=== PATIENT | male | born 1975 | race Hispanic/Latino ===

== ENCOUNTER 2018-01-11 18:08 | Emergency (ER) | payer SELFPAY ==
[~2018-01-11 18:08] MED LIST: AMOX-429 PO; METF-444 PO
[2018-01-11 19:47] LABS: BASOPHILS % (AUTO) 2.3 % (0.0-5.0); EOSINOPHILS % (AUTO) 0.7 % (0.0-8.0); HEMATOCRIT 43.6 % (42-54); LYMPHOCYTES % (AUTO) 17.1 % (21.0-51.0); MEAN CORPUSCULAR HEMOGLOBIN 29.2 pg (27.0-33.0); MEAN CORPUSCULAR VOLUME 85.8 fL (79-99); MONOCYTES % (AUTO) 9.5 % (3.0-13.0); NEUTROPHILS % (AUTO) 70.4 % (40.0-77.0); PLATELET COUNT (AUTO) 346 K/uL (130-400); RED BLOOD CELL COUNT(AUTO) 5.08 MIL/uL (4.50-6.20); RED CELL DISTRIBUTION WIDTH 13.5 % (11.0-15.5); WHITE BLOOD COUNT (AUTO) 7.4 K/uL (4.8-10.8)
[2018-01-11 19:57] LABS: CREATININE 1.1 mg/dL (0.5-1.5); POTASSIUM 3.9 mmol/L (3.5-5.1)
[2018-01-11 19:59] LABS: AMPHET/METH SCREEN,URINE NEGATIVE (NEGATIVE); BARBITURATE SCREEN, URINE NEGATIVE (NEGATIVE); BENZODIAZEPINES SCREEN,URINE NEGATIVE (NEGATIVE); CANNABINOID SCREEN,URINE NEGATIVE (NEGATIVE); COCAINE SCREEN,URINE POSITIVE (NEGATIVE); OPIATE SCREEN,URINE NEGATIVE (NEGATIVE); PHENCYCLIDINE SCREEN,URINE NEGATIVE (NEGATIVE)
[2018-01-11] MEDS ORDERED: INSULIN HUMULIN R 100 UNIT/ML 3ML ONE (21:02)
[2018-01-11] MEDS ORDERED: SODIUM CHLORIDE 0.9% 1000ML 1,000 ML IV ONE (21:02)
[2018-01-11] MEDS ORDERED: ACETAMINOPHEN 325 MG TAB ONE (21:33)
== END 2018-01-11 22:35 | disposition home or self-care (01) ==
LOC: EDH 18:08
DX: E11.65 Type 2 diabetes mellitus with hyperglycemia (principal); F14.10 Cocaine abuse, uncomplicated; Z48.01 Encounter for change or removal of surgical wound dressing; Z72.0 Tobacco use
CPT/HCPCS: 36415; 73590; 80048; 80305; 82948; 83605; 85025; 87040 ×2; 96361; 96374; 99285; J1815; J7030

== ENCOUNTER 2018-02-23 09:04 | Emergency (ER) | payer SELFPAY ==
[2018-02-23] MEDS ORDERED: ONDANSETRON HCL 4 MG/2 ML VIAL ONE (09:49)
[2018-02-23] MEDS ORDERED: MORPHINE SULFATE 4 MG/1ML SYG ONE (09:49)
[2018-02-23] MEDS ORDERED: LIDOCAINE 1%-EPI 1:100,000 20 ML VIAL IJ ONE (09:49)
[2018-02-23 09:52] LABS: BASOPHILS % (AUTO) 0.7 % (0.0-5.0); EOSINOPHILS % (AUTO) 0.5 % (0.0-8.0); HEMATOCRIT 44.7 % (42-54); LYMPHOCYTES % (AUTO) 13.5 % (21.0-51.0); MEAN CORPUSCULAR HEMOGLOBIN 28.9 pg (27.0-33.0); MEAN CORPUSCULAR HGB CONC 33.6 g/dL (32.0-36.0); MEAN CORPUSCULAR VOLUME 86.1 fL (79-99); MONOCYTES % (AUTO) 4.7 % (3.0-13.0); NEUTROPHILS % (AUTO) 80.6 % (40.0-77.0); PLATELET COUNT (AUTO) 341 K/uL (130-400); RED BLOOD CELL COUNT(AUTO) 5.19 MIL/uL (4.50-6.20); RED CELL DISTRIBUTION WIDTH 13.5 % (11.0-15.5); WHITE BLOOD COUNT (AUTO) 12.4 K/uL (4.8-10.8)
[2018-02-23 10:11] LABS: ALBUMIN 3.1 g/dL (3.5-5.0); BILIRUBIN,TOTAL 0.4 mg/dL (0.2-1.0); TOTAL PROTEIN, SERUM 7.6 g/dL (6.0-8.3)
== END 2018-02-23 11:03 | disposition home or self-care (01) ==
LOC: EDH 09:04
DX: L02.31 Cutaneous abscess of buttock (principal); R03.0 Elevated blood-pressure reading, without diagnosis of hypertension; E11.9 Type 2 diabetes mellitus without complications; Z72.0 Tobacco use
CPT/HCPCS: 10061; 36415; 80053; 85025; 96374; 96375; 99284; J2270; J2405; J3490

== ENCOUNTER 2019-10-05 14:09 | Emergency (ER) | payer SELFPAY ==
[2019-10-05] MEDS ORDERED: SULFAMETHOX-TMP DS 800/160 TAB ONE (14:34)
[2019-10-05] MEDS ORDERED: IBUPROFEN 600 MG TABLET ONE (14:35)
== END 2019-10-05 15:17 | disposition home or self-care (01) ==
LOC: EDH 14:09
DX: L02.414 Cutaneous abscess of left upper limb (principal); E11.9 Type 2 diabetes mellitus without complications; I10 Essential (primary) hypertension; E78.00 Pure hypercholesterolemia, unspecified; Z87.891 Personal history of nicotine dependence

== ENCOUNTER 2020-08-13 10:43 | Emergency (ER) | payer OTHER ==
[2020-08-13 11:16] LABS: BASOPHILS % (AUTO) 0.7 % (0.0-5.0); EOSINOPHILS % (AUTO) 0.9 % (0.0-8.0); HEMATOCRIT 47.6 % (42-54); LYMPHOCYTES % (AUTO) 20.7 % (21.0-51.0); MEAN CORPUSCULAR HEMOGLOBIN 27.5 pg (27.0-33.0); MEAN CORPUSCULAR HGB CONC 32.6 g/dL (32.0-36.0); MEAN CORPUSCULAR VOLUME 84.4 fL (79-99); MONOCYTES % (AUTO) 6.9 % (3.0-13.0); NEUTROPHILS % (AUTO) 70.2 % (40.0-77.0); PLATELET COUNT (AUTO) 345 K/uL (130-400); RED BLOOD CELL COUNT(AUTO) 5.64 MIL/uL (4.50-6.20); RED CELL DISTRIBUTION WIDTH 12.9 % (11.0-15.5); WHITE BLOOD COUNT (AUTO) 10.1 K/uL (4.8-10.8)
[2020-08-13 11:31] LABS: ALBUMIN 3.6 g/dL (3.5-5.0); BILIRUBIN,TOTAL 0.5 mg/dL (0.2-1.0); CREATININE 1.1 mg/dL (0.5-1.5); POTASSIUM 4.9 mmol/L (3.5-5.1); TOTAL PROTEIN, SERUM 8.7 g/dL (6.0-8.3)
[2020-08-13] MEDS ORDERED: CLINDAMYCIN 600 MG/D5% WATER 50 ML IV ONE (12:42)
[2020-08-13] MEDS ORDERED: SODIUM CHLORIDE 0.9% 100 ML IV ONE (12:42)
[2020-08-13] MEDS ORDERED: INSULIN HUMULIN R 100 UNIT/ML 3ML ONE (12:43)
[2020-08-13 12:49] LABS: APPEARANCE,URINE Clear (CLEAR); BILIRUBIN,URINE Negative (NEGATIVE); COLOR,URINE Yellow (YELLOW); GLUCOSE, URINE (UA) >=1000 mg/dL (NEGATIVE); KETONES,URINE Negative (NEGATIVE); LEUKOCYTE ESTERASE ,URINE Negative (NEGATIVE); NITRATE,URINE Negative (NEGATIVE); OCCULT BLOOD,URINE Negative (NEGATIVE); PROTEIN,URINE Negative (NEGATIVE); UROBILINOGEN,URINE 0.2 mg/dL (0.2-1.0)
[2020-08-13 12:58] LABS: BACTERIA,URINE None Seen /HPF (None Seen); RBC,URINE 0-1 /HPF (0-1); SQUAMOUS EPITHELIAL CELL,UR Rare /HPF (0-2); WBC,URINE 0-1 /HPF (0-1)
== END 2020-08-13 14:29 | disposition home or self-care (01) ==
LOC: EDH 10:43
DX: L02.415 Cutaneous abscess of right lower limb (principal); E11.65 Type 2 diabetes mellitus with hyperglycemia; I10 Essential (primary) hypertension; E78.00 Pure hypercholesterolemia, unspecified; Z87.891 Personal history of nicotine dependence
CPT/HCPCS: 36415; 80053; 81001; 84484; 85025; 96365; 96366; 96372; 99284; J1815; J3490

== ENCOUNTER 2021-02-03 19:48 | Emergency (ER) | payer OTHER ==
[~2021-02-03] VITALS: Ht 167.6 cm; Wt 103.4 kg
[2021-02-03] MEDS ORDERED: LIDOCAINE HCL 2% VISCOUS 15 ML UDCUP PO ONE (22:30)
[2021-02-03] MEDS ORDERED: KETOROLAC 30MG VIAL (30MG/ML) IM ONE (22:30)
[2021-02-03] MEDS ORDERED: MAG/ALUM/SIMETH 30 ML UDCUP PO ONE (22:30)
[2021-02-03 23:26] LABS: BASOPHILS % (AUTO) 0.9 % (0.0-5.0); EOSINOPHILS % (AUTO) 0.8 % (0.0-8.0); HEMATOCRIT 42.9 % (42-54); LYMPHOCYTES % (AUTO) 22.9 % (21.0-51.0); MEAN CORPUSCULAR HEMOGLOBIN 29.3 pg (27.0-33.0); MEAN CORPUSCULAR HGB CONC 33.3 g/dL (32.0-36.0); MEAN CORPUSCULAR VOLUME 87.9 fL (79-99); MONOCYTES % (AUTO) 9.2 % (3.0-13.0); NEUTROPHILS % (AUTO) 65.8 % (40.0-77.0); PLATELET COUNT (AUTO) 376 K/uL (130-400); RED BLOOD CELL COUNT(AUTO) 4.88 MIL/uL (4.50-6.20); RED CELL DISTRIBUTION WIDTH 12.6 % (11.0-15.5); WHITE BLOOD COUNT (AUTO) 12.4 K/uL (4.8-10.8)
[2021-02-03 23:39] LABS: CREATININE 1.5 mg/dL (0.5-1.5); POTASSIUM 4.1 mmol/L (3.5-5.1)
[2021-02-03 23:44] LABS: BILIRUBIN,TOTAL 0.3 mg/dL (0.2-1.0); TOTAL PROTEIN, SERUM 8.9 g/dL (6.0-8.3)
[2021-02-04] MEDS ORDERED: DICY20TA2 PO (00:24)
[2021-02-04] MEDS ORDERED: PANT40TA54 PO (00:24)
[2021-02-04] MEDS ORDERED: CHLO25TA23 PO (00:24)
[2021-02-04] MEDS ORDERED: LIDOCAINE HCL 2% VISCOUS 15 ML UDCUP ONE (00:26)
[2021-02-04] MEDS ORDERED: CHLORPROMAZINE HCL 25 MG/ML 1ML AMP ONE (00:27)
[2021-02-04] MEDS ORDERED: KETOROLAC 30MG VIAL (30MG/ML) ONE (00:27)
[2021-02-04] MEDS ORDERED: MAG/ALUM/SIMETH 30 ML UDCUP ONE (00:27)
[2021-02-04] MEDS ORDERED: CHLORPROMAZINE HCL 25 MG/ML 1ML AMP IM SCH (00:30)
[2021-02-04 00:46] VITALS: BP 160/87
== END 2021-02-04 00:57 | disposition home or self-care (01) ==
LOC: EDH 19:48
DX: K80.70 Calculus of gallbladder and bile duct without cholecystitis without obstruction (principal); K21.9 Gastro-esophageal reflux disease without esophagitis; I10 Essential (primary) hypertension; E78.00 Pure hypercholesterolemia, unspecified; E11.9 Type 2 diabetes mellitus without complications; Z79.1 Long term (current) use of non-steroidal anti-inflammatories (NSAID); Z79.84 Long term (current) use of oral hypoglycemic drugs; Z87.19 Personal history of other diseases of the digestive system
CPT/HCPCS: 36415; 71045; 76705; 80053; 82150; 83690; 85025; 93005; 96372 ×2; 99285; J1885; J3230

== ENCOUNTER 2021-07-31 07:56 | Emergency (ER) | payer SELFPAY ==
[~2021-07-31] VITALS: Ht 167.6 cm; Wt 103.0 kg
[~2021-07-31 07:56] MED LIST changes: +CHLO25TA23 PO; +DICY20TA2 PO; +PANT40TA54 PO
[2021-07-31 08:21] LABS: BASOPHILS % (AUTO) 0.7 % (0.0-5.0); EOSINOPHILS % (AUTO) 0.5 % (0.0-8.0); HEMATOCRIT 46.9 % (42-54); LYMPHOCYTES % (AUTO) 19.5 % (21.0-51.0); MEAN CORPUSCULAR HEMOGLOBIN 27.5 pg (27.0-33.0); MEAN CORPUSCULAR HGB CONC 33.3 g/dL (32.0-36.0); MEAN CORPUSCULAR VOLUME 82.7 fL (79-99); MONOCYTES % (AUTO) 6.7 % (3.0-13.0); NEUTROPHILS % (AUTO) 72.2 % (40.0-77.0); PLATELET COUNT (AUTO) 352 K/uL (130-400); RED BLOOD CELL COUNT(AUTO) 5.67 MIL/uL (4.50-6.20); RED CELL DISTRIBUTION WIDTH 14.2 % (11.0-15.5); WHITE BLOOD COUNT (AUTO) 12.2 K/uL (4.8-10.8)
[2021-07-31 08:22] LABS: APPEARANCE,URINE Clear (CLEAR); BILIRUBIN,URINE Negative (NEGATIVE); COLOR,URINE Yellow (YELLOW); GLUCOSE, URINE (UA) 500 mg/dL (NEGATIVE); KETONES,URINE >=80 mg/dL (NEGATIVE); LEUKOCYTE ESTERASE ,URINE Negative (NEGATIVE); NITRATE,URINE Negative (NEGATIVE); OCCULT BLOOD,URINE Negative (NEGATIVE); PH,URINE 5.5 (5.0-8.0); PROTEIN,URINE POS 2+ mg/dL (NEGATIVE)
[2021-07-31] MEDS ORDERED: KETOROLAC 30MG VIAL (30MG/ML) IVP ONE (08:30)
[2021-07-31 08:35] LABS: ALBUMIN 4.2 g/dL (3.5-5.0); BILIRUBIN,TOTAL 0.5 mg/dL (0.2-1.0); TOTAL PROTEIN, SERUM 8.8 g/dL (6.0-8.3)
[2021-07-31 08:42] LABS: BACTERIA,URINE Rare /HPF (None Seen); MUCUS,URINE Few LPF (None Seen); RBC,URINE None Seen /HPF (0-1); SPERM,URINE Few /HPF (None Seen); SQUAMOUS EPITHELIAL CELL,UR 0-2 /HPF (0-2); WBC,URINE 0-1 /HPF (0-1)
[2021-07-31] MEDS ORDERED: DICL50TA9 PO (09:32)
[2021-07-31 09:55] VITALS: BP 111/49
== END 2021-07-31 09:57 | disposition home or self-care (01) ==
LOC: EDH 07:56
DX: K80.70 Calculus of gallbladder and bile duct without cholecystitis without obstruction (principal); E11.9 Type 2 diabetes mellitus without complications; E78.00 Pure hypercholesterolemia, unspecified; I10 Essential (primary) hypertension; K21.9 Gastro-esophageal reflux disease without esophagitis; Z79.1 Long term (current) use of non-steroidal anti-inflammatories (NSAID); Z79.84 Long term (current) use of oral hypoglycemic drugs
CPT/HCPCS: 36415; 74176; 80053; 81001; 83690; 85025; 96374; 99284; J1885

== ENCOUNTER 2022-02-24 16:56 | Inpatient (IN) | payer OTHER ==
[~2022-02-24] VITALS: Ht 170.2 cm; Wt 100.0 kg
[~2022-02-24 16:56] MED LIST changes: -CHLO25TA23 PO; +CHLO25TA68 PO; +DICL50TA9 PO
[2022-02-24 17:56] LABS: BASOPHILS % (AUTO) 0.5 % (0.0-5.0); EOSINOPHILS % (AUTO) 0.5 % (0.0-8.0); MEAN CORPUSCULAR HGB CONC 33.2 g/dL (32.0-36.0); MEAN CORPUSCULAR VOLUME 84.3 fL (79-99); MONOCYTES % (AUTO) 6.2 % (3.0-13.0); NEUTROPHILS % (AUTO) 75.4 % (40.0-77.0); PLATELET COUNT (AUTO) 299 K/uL (130-400); RED BLOOD CELL COUNT(AUTO) 4.39 MIL/uL (4.50-6.20); RED CELL DISTRIBUTION WIDTH 13.8 % (11.0-15.5)
[2022-02-24] MEDS ORDERED: 0.9%NACL 1000ML 1,000 ML IV ONE ×2 (18:00→19:30)
[2022-02-24 18:10] LABS: ALANINE AMINOTRANSFERASE 24 U/L (12-78); ALBUMIN 3.5 g/dL (3.5-5.0); ASPARTATE AMINOTRANSFERASE 13 U/L (10-37); CARBON DIOXIDE 22 mmol/L (21-32); CHLORIDE 102 mmol/L (101-111); CREATININE 2.9 mg/dL (0.5-1.5); GLOMERULAR FILTR. RATE CALC 25 mL/min (>60); SODIUM SERUM 136 mmol/L (136-145); TOTAL PROTEIN, SERUM 7.3 g/dL (6.0-8.3); UREA NITROGEN, BLOOD 50 mg/dL (7-18)
[2022-02-24 18:11] LABS: ACETAMINOPHEN < 1 mcg/mL (10-29); SALICYLATE < 2.8 mg/dL (2.8-20.0)
[2022-02-24 18:12] LABS: GLUCOSE,RANDOM 430 mg/dL (70-105)
[2022-02-24 19:05] LABS: APPEARANCE,URINE CLOUDY (CLEAR); BILIRUBIN,URINE NEGATIVE (NEGATIVE); COLOR,URINE YELLOW (YELLOW); GLUCOSE, URINE (UA) 200 mg/dL (NEGATIVE); KETONES,URINE 5 mg/dL (NEGATIVE); LEUKOCYTE ESTERASE ,URINE 75 Leu/uL (NEGATIVE); NITRATE,URINE NEGATIVE (NEGATIVE); OCCULT BLOOD,URINE NEGATIVE (NEGATIVE); PH,URINE 5.5 (5.0-8.0); PROTEIN,URINE 70 mg/dL (NEGATIVE)
[2022-02-24 19:13] LABS: AMPHET/METH SCREEN,URINE NEGATIVE (NEGATIVE); BARBITURATE SCREEN, URINE NEGATIVE (NEGATIVE); BENZODIAZEPINES SCREEN,URINE NEGATIVE (NEGATIVE); CANNABINOID SCREEN,URINE NEGATIVE (NEGATIVE); COCAINE SCREEN,URINE POSITIVE (NEGATIVE); OPIATE SCREEN,URINE NEGATIVE (NEGATIVE); PHENCYCLIDINE SCREEN,URINE NEGATIVE (NEGATIVE)
[2022-02-24 19:19] LABS: MUCUS,URINE RARE LPF (None Seen); SQUAMOUS EPITHELIAL CELL,UR MANY /HPF (0-2)
[2022-02-24 19:56] LABS: ABG BASE EXCESS -6.4 mmol/L (-2.0-3.0); ABG HCO3 18.7 mmol/L (21.0-28.0); ABG OXYGEN SATURATION 95.4 % (95.0-99.0); ABG PCO2 36 mmHg (35-48)
[2022-02-24] MEDS ORDERED: MORPHINE 4 MG SYG IV PRN (22:00)
[2022-02-24] MEDS ORDERED: MORPHINE 2 MG SYG IV PRN (22:00)
[2022-02-24] MEDS ORDERED: ONDANSETRON 4MG INJ IV PRN (22:00)
[2022-02-24] MEDS ORDERED: ACETAMINOPHEN 325 MG TAB PO PRN (22:00)
[2022-02-24] MEDS: CEFTRIAXONE 1G VIAL IV SCH (22:14)
[2022-02-24] MEDS: LACTATED RINGERS 1000ML 1,000 ML IV SCH (22:15)
[2022-02-24 23:14] LABS: CREATININE,URINE RANDOM 322 mg/dL (30-135); SODIUM,URINE RANDOM 45 mmol/l (40-220)
[2022-02-24] MEDS: HEPARIN 5,000 UNIT VIAL SQ SCH (23:56)
[2022-02-25] VITALS (7 sets, daily range): BP systolic 109–147; BP diastolic 70–85
[2022-02-25] MEDS ORDERED: GLIP10TA9 PO (04:46)
[2022-02-25] MEDS ORDERED: LISI20TA24 PO (04:46)
[2022-02-25] MEDS ORDERED: LOVA20TA3 PO (04:46)
[2022-02-25] MEDS ORDERED: METF-446 PO (04:46)
[2022-02-25] MEDS: INSULIN HUMULIN R 100 UNIT/ML 3ML SQ SCH ×5 (07:01→22:20)
[2022-02-25] MEDS: HEPARIN 5,000 UNIT VIAL SQ SCH ×3 (07:36→22:31)
[2022-02-25 07:39] LABS: BASOPHILS % (AUTO) 0.8 % (0.0-5.0); EOSINOPHILS % (AUTO) 1.1 % (0.0-8.0); HEMATOCRIT 36.9 % (42-54); LYMPHOCYTES % (AUTO) 31.5 % (21.0-51.0); MEAN CORPUSCULAR HEMOGLOBIN 28.3 pg (27.0-33.0); MEAN CORPUSCULAR HGB CONC 33.1 g/dL (32.0-36.0); MEAN CORPUSCULAR VOLUME 85.6 fL (79-99); MONOCYTES % (AUTO) 7.5 % (3.0-13.0); NEUTROPHILS % (AUTO) 58.7 % (40.0-77.0); PLATELET COUNT (AUTO) 297 K/uL (130-400); RED BLOOD CELL COUNT(AUTO) 4.31 MIL/uL (4.50-6.20); RED CELL DISTRIBUTION WIDTH 13.9 % (11.0-15.5); WHITE BLOOD COUNT (AUTO) 9.3 K/uL (4.8-10.8)
[2022-02-25 07:47] LABS: CREATININE 1.6 mg/dL (0.5-1.5); MAGNESIUM 1.3 mg/dL (1.80-2.40); PHOSPHORUS 4.5 mg/dL (2.5-4.9); POTASSIUM 4.6 mmol/L (3.5-5.1); THYROID STIMULATING HORMONE 0.94 uIU/mL (0.36-3.74)
[2022-02-25 07:53] LABS: HEMOGLOBIN A1C 10.7 % (4.0-6.0)
[2022-02-25] MEDS: LACTATED RINGERS 1000ML 1,000 ML IV SCH ×2 (08:08→17:01)
[2022-02-25] MEDS: FAMOTIDINE 20MG TAB PO SCH (08:08)
[2022-02-25] MEDS ORDERED: ENOXAPARIN SODIUM 40 MG/0.4 ML SYRINGE SQ SCH (09:00)
[2022-02-25] MEDS ORDERED: MAGNESIUM 2GM PREMIX 50ML 50 ML IV PRN (09:00)
[2022-02-25] MEDS: MAGNESIUM 2GM PREMIX 50ML 50 ML IV PRN (09:50)
[2022-02-25 12:59] LABS: RETICULOCYTE % (AUTO) 1.74 % (0.42-2.23)
[2022-02-25 13:29] LABS: % IRON SATURATION 31.5 % (30-44)
[2022-02-25] MEDS: INSULIN GLARGINE 100 UNITS/ML 10 ML VIAL SQ SCH (22:18)
[2022-02-25] MEDS: CEFTRIAXONE 1G VIAL IV SCH (22:21)
[2022-02-25] MEDS: GABAPENTIN 300 MG CAPSULE PO SCH (22:21)
[2022-02-26] VITALS: BP 140/79
[2022-02-26 04:00] VITALS: BP 113/60
[2022-02-26 05:17] LABS: BASOPHILS % (AUTO) 0.7 % (0.0-5.0); EOSINOPHILS % (AUTO) 1.5 % (0.0-8.0); HEMATOCRIT 37.8 % (42-54); LYMPHOCYTES % (AUTO) 36.7 % (21.0-51.0); MEAN CORPUSCULAR HEMOGLOBIN 28.2 pg (27.0-33.0); MEAN CORPUSCULAR HGB CONC 32.5 g/dL (32.0-36.0); MEAN CORPUSCULAR VOLUME 86.7 fL (79-99); MONOCYTES % (AUTO) 8.7 % (3.0-13.0); PLATELET COUNT (AUTO) 289 K/uL (130-400); RED BLOOD CELL COUNT(AUTO) 4.36 MIL/uL (4.50-6.20); RED CELL DISTRIBUTION WIDTH 13.7 % (11.0-15.5); WHITE BLOOD COUNT (AUTO) 9.2 K/uL (4.8-10.8)
[2022-02-26 05:44] LABS: B-TYPE NATRIURETIC PEPTIDE 9 pg/mL (0-100)
[2022-02-26 05:49] LABS: CREATININE 1.2 mg/dL (0.5-1.5); MAGNESIUM 1.5 mg/dL (1.80-2.40); POTASSIUM 4.4 mmol/L (3.5-5.1)
[2022-02-26] MEDS: MAGNESIUM 2GM PREMIX 50ML 50 ML IV PRN (06:11)
[2022-02-26] MEDS: HEPARIN 5,000 UNIT VIAL SQ SCH ×3 (07:18→23:30)
[2022-02-26] MEDS: INSULIN HUMULIN R 100 UNIT/ML 3ML SQ SCH ×7 (07:19→21:27)
[2022-02-26 08:11] VITALS: BP 120/73
[2022-02-26] MEDS: FAMOTIDINE 20MG TAB PO SCH (08:40)
[2022-02-26] MEDS: GABAPENTIN 300 MG CAPSULE PO SCH ×2 (08:41→21:22)
[2022-02-26 11:41] VITALS: BP 140/58
[2022-02-26 15:56] VITALS: BP 140/69
[2022-02-26 20:00] VITALS: BP 142/83
[2022-02-26] MEDS ORDERED: DOCUSATE SODIUM 100 MG CAP PO SCH (21:00)
[2022-02-26] MEDS: POLYETHYLENE GLYCOL 3350 17 GM POWD.PACK PO SCH (21:23)
[2022-02-26] MEDS: INSULIN GLARGINE 100 UNITS/ML 10 ML VIAL SQ SCH (21:24)
[2022-02-26] MEDS: CEFTRIAXONE 1G VIAL IV SCH (21:24)
[2022-02-27] VITALS: BP 132/79
[2022-02-27 04:00] VITALS: BP 121/78
[2022-02-27] MEDS: HEPARIN 5,000 UNIT VIAL SQ SCH ×3 (06:33→23:30)
[2022-02-27] MEDS: INSULIN HUMULIN R 100 UNIT/ML 3ML SQ SCH ×7 (06:34→21:28)
[2022-02-27 07:00] VITALS: BP 117/73
[2022-02-27] MEDS: POLYETHYLENE GLYCOL 3350 17 GM POWD.PACK PO SCH (09:03)
[2022-02-27] MEDS: FAMOTIDINE 20MG TAB PO SCH (09:03)
[2022-02-27] MEDS: GABAPENTIN 300 MG CAPSULE PO SCH ×2 (09:04→21:29)
[2022-02-27 12:00] VITALS: BP 130/71
[2022-02-27 16:00] VITALS: BP 126/88
[2022-02-27 19:49] VITALS: BP 141/73
[2022-02-27] MEDS: CEFTRIAXONE 1G VIAL IV SCH (21:26)
[2022-02-27] MEDS: INSULIN GLARGINE 100 UNITS/ML 10 ML VIAL SQ SCH (21:27)
[2022-02-28] VITALS: BP 135/73
[2022-02-28 04:37] VITALS: BP 111/73
[2022-02-28] MEDS: INSULIN HUMULIN R 100 UNIT/ML 3ML SQ SCH ×3 (06:16→12:15)
[2022-02-28 07:30] VITALS: BP 111/73
[2022-02-28] MEDS: GABAPENTIN 300 MG CAPSULE PO SCH (08:17)
[2022-02-28] MEDS: POLYETHYLENE GLYCOL 3350 17 GM POWD.PACK PO SCH (08:17)
[2022-02-28] MEDS: HEPARIN 5,000 UNIT VIAL SQ SCH ×2 (08:17→14:36)
[2022-02-28] MEDS: FAMOTIDINE 20MG TAB PO SCH (08:18)
[2022-02-28 09:13] LABS: HEMATOCRIT 40.3 % (42-54); MEAN CORPUSCULAR HEMOGLOBIN 28.3 pg (27.0-33.0); MEAN CORPUSCULAR HGB CONC 32.3 g/dL (32.0-36.0); MEAN CORPUSCULAR VOLUME 87.6 fL (79-99); RED BLOOD CELL COUNT(AUTO) 4.6 MIL/uL (4.50-6.20); RED CELL DISTRIBUTION WIDTH 13.4 % (11.0-15.5)
[2022-02-28 09:28] LABS: MAGNESIUM 1.6 mg/dL (1.80-2.40); PHOSPHORUS 3.8 mg/dL (2.5-4.9); POTASSIUM 5.3 mmol/L (3.5-5.1)
[2022-02-28 11:11] VITALS: BP 114/69
[2022-02-28] MEDS ORDERED: INSULIN HUMULIN R 100 UNIT/ML 3ML SQ SCH (11:30)
[2022-02-28] MEDS ORDERED: GABA300C PO (15:13)
== END 2022-02-28 19:17 | disposition home or self-care (01) | DRG 683 ==
LOC: EDH 16:56 → EDHIP 16:57 → 2DH 02-25 01:23 → 4CH 02-25 16:46
PROVIDERS: ADMIT Internal Medicine; ATTEND Internal Medicine
DX: N17.9 Acute kidney failure, unspecified (principal); E87.20 Acidosis, unspecified; N39.0 Urinary tract infection, site not specified; F14.10 Cocaine abuse, uncomplicated; E78.00 Pure hypercholesterolemia, unspecified; F10.20 Alcohol dependence, uncomplicated; F41.9 Anxiety disorder, unspecified; G62.9 Polyneuropathy, unspecified; I10 Essential (primary) hypertension; Z51.5 Encounter for palliative care; Z79.84 Long term (current) use of oral hypoglycemic drugs; Z79.899 Other long term (current) drug therapy; Z82.49 Family history of ischemic heart disease and other diseases of the circulatory system; Z83.3 Family history of diabetes mellitus; Z91.199 Patient's noncompliance with other medical treatment and regimen due to unspecified reason
CPT/HCPCS: 36415; 36600; 80048; 80053; 80305; 81001; 82010; 82550; 82570; 82607; 82728; 82746; 82803; 82948; 83036; 83540; 83550; 83605; 83735; 83874; 83880; 83935; 84100; 84132; 84145; 84300; 84443; 85025; 85027; 85045; 87040; 87088; 93005; 99291; G0378; G0481; J0696; J1644; J1815; J3475; J7120